=== PATIENT | male | born 1945 | race Caucasian/White ===

== ENCOUNTER → 2017-11-23 | Outpatient (CLI) | payer MEDICARE, OTHER ==
[~2017-11-23] MED LIST: ATOR20TA PO; ESOM40CA25 PO; LISI-338 PO; SOTA80TA48 PO
--- NOTE | 2017-11-23 14:06 | RAD ---
Bone densitometry 11/23/2017 9:53 AM Indication: SCREENING FOR OSTEOPOROSIS Comparison Study: None. Discussion: Bone Densitometry was performed with dual photon absorption of the lumbar spine and left proximal femur Lumbar Spine: Bone average density is 1.217g/cm2 for L1-L4. T-Score is 0. Left femoral neck: Bone average density is 0.825g/cm2. T-Score is -1.3. IMPRESSION: Osteopenia based on decreased bone mineral density, left femoral neck Note: Definitions established by the World [employer] Organization: Normal: T-score is -1.0 or above. Osteopenia: T-score is between -1.0 and -2.5. Osteoporosis: T-score is -2.5 or below. Electronically signed by: Krishna Petersen MD (11/23/2017 2:03 PM) [id number]
== END | disposition home or self-care (01) ==
LOC: DXRAD 09:22
PROVIDERS: ATTEND Family Medicine
DX: M85.852 Other specified disorders of bone density and structure, left thigh (principal); Z87.891 Personal history of nicotine dependence
CPT/HCPCS: 77080

== ENCOUNTER → 2019-09-12 | Outpatient (CLI) | payer MEDICARE, OTHER ==
--- NOTE | 2019-09-12 16:17 | RAD ---
EXAM: Left knee, 3 views. HISTORY: Pain. COMPARISON: None. FINDINGS: 3 views of the left knee are obtained. There is mild tricuspid bilateral spurring. There is slight enthesopathy along the superior patella. There is no significant joint effusion. There is no fracture, dislocation or subluxation. IMPRESSION: Mild osteoarthritis of the left knee. Electronically signed by: Jeannette Smith MD (09/12/2019 4:15 PM) [id number]
== END ==
LOC: RAD 15:56
PROVIDERS: ATTEND Family Medicine
DX: M17.12 Unilateral primary osteoarthritis, left knee (principal)
CPT/HCPCS: 73562

== ENCOUNTER → 2019-12-19 | Outpatient (CLI) | payer MEDICARE, OTHER ==
--- NOTE | 2019-12-19 14:29 | RAD ---
INDICATION: Osteoporosis screening. Follow-up of osseous demineralization COMPARISON: 11/23/2017 TECHNIQUE: Bone densitometry was performed through the lumbar spine and proximal femur. FINDINGS: Lumbar Spine: BMD: 1.15 T-Score: -0.6 Decreased by 3 percent from prior Proximal Femur: BMD: 1.09 T-Score: 0.3 Increased by 5 percent from prior IMPRESSION: 1. Lumbar spine falls within the normal range. 2. Proximal femur falls within the normal range. Electronically signed by: Jaycob Nolen MD (12/19/2019 2:26 PM) [id number]
== END ==
LOC: DXRAD 12:54
PROVIDERS: ATTEND Family Medicine
DX: Z13.820 Encounter for screening for osteoporosis (principal); M85.9 Disorder of bone density and structure, unspecified
CPT/HCPCS: 77080